=== PATIENT | female | born 1995 | race Caucasian/White ===

== ENCOUNTER 2018-06-22 21:57 | Emergency (ER) | payer OTHER ==
[2018-06-22 22:59] VITALS: TEMP 98.4
[2018-06-23] MEDS ORDERED: Atrop/Hyos/Scop/PhenoB Elixir PO STA (01:04)
[2018-06-23] MEDS ORDERED: Alum-Mag Hydrox-Simethicone Susp (30 mL) PO STA (01:04)
[2018-06-23] MEDS ORDERED: Sodium Chloride 0.9% 1,000 ML IV STA (01:05)
[2018-06-23 01:42] LABS: BASO % 0.4 % (0.0-2.0); EOS % 0.4 % (0.0-4.0); HEMOGLOBIN 13.5 g/dL (12.0-16.0); LYMPH # 1.1 K/uL (1.0-4.3); LYMPH % 14.3 % (20.0-40.0); MEAN CELL VOLUME 94.7 fl (81.0-99.0); MEAN CORPUSCULAR HEMOGLOBIN 31.5 pg (27.0-31.0); MEAN CORPUSCULAR HGB CONC 33.3 g/dL (33.0-37.0); MEAN PLATELET VOLUME 8.3 fl (7.2-11.7); MONO # 0.4 K/uL (0.0-0.8); MONO % 4.5 % (0.0-10.0); NEUT # 6.4 K/uL (1.8-7.0); NEUT % 80.4 % (50.0-75.0); RBC 4.27 Mil/uL (3.80-5.20); RED CELL DISTRIBUTION WIDTH 14.3 % (11.5-14.5)
[2018-06-23 01:56] LABS: SQUAMOUS EPITHIAL 12 /hpf (0-5); URINE BILIRUBIN NEGATIVE (NEGATIVE); URINE BLOOD SMALL (NEGATIVE); URINE CLARITY TURBID (Clear); URINE COLOR YELLOW (YELLOW); URINE GLUCOSE (UA) NEG (Normal); URINE LEUKOCYTE ESTERASE LARGE Leu/uL (Negative); URINE PROTEIN 30 mg/dL (NEGATIVE); URINE UROBILINOGEN 0.2-1.0 mg/dL (0.2-1.0); WBC CLUMPS MANY /hpf
[2018-06-23] MEDS ORDERED: Alum-Mag Hydrox-Simethicone Susp (30 mL) ONE (02:02)
[2018-06-23 02:03] LABS: ALB/GLOB RATIO 1.3 (1.0-2.1); ALT/SGPT 26 U/L (9-52); AST/SGOT 28 U/L (14-36); BLOOD UREA NITROGEN 16 mg/dl (7-17); CALCIUM 10.6 mg/dL (8.4-10.2); GFR NON-AFRICAN AMERICAN > 60; LIPASE 80 U/L (23-300)
--- NOTE | 2018-06-23 02:34 | ED PDOC ---
HPI: Abdomen Time Seen by Provider: 06/23/18 00:26 Chief Complaint (Nursing): Abdominal Pain Chief Complaint (Provider): abdominal pain History Per: Patient History/Exam Limitations: no limitations Onset/Duration Of Symptoms: Hrs (x3) Current Symptoms Are (Timing): Still Present Location Of Pain/Discomfort: Epigastric Associated Symptoms: Nausea, Vomiting (x1) Additional Complaint(s): Viola Clark is a 23 year old female, with no significant past medical history, who presents to the emergency department complaining of abdominal pain onset for x3 hrs. Patient reports she took some herbal medication from [employer] that her mother sent her. After taking the herbal medication, she developed an acute epigastric pain that radiates to chest and is associated with nausea and x1 vomiting episode, non bloody and non bilious. She denies any other medical complaints. PMD: None provided. Past Medical History Reviewed: Historical Data, Nursing Documentation, Vital Signs Vital Signs: Last Vital Signs Temp 98.4 F 06/22/18 22:54 Pulse 85 06/22/18 22:54 Resp 17 06/22/18 22:54 BP 109/72 06/22/18 22:54 Pulse Ox 98 06/22/18 22:54 - Medical History PMH: No Chronic Diseases - Surgical History Surgical History: Appendectomy - Family History Family History: States: Unknown Family Hx - Social History Current smoker - smoking cessation education provided: No Alcohol: None Drugs: Denies - Home Medications Home Medications: Ambulatory Orders Medication Instructions Recorded Esomeprazole Magnesium [Nexium] 20 mg PO QAM #14 ecc 06/23/18 Nitrofurantoin Macrocrystals 100 mg PO BID #14 cap 06/23/18 [Macrobid] - Allergies Allergies/Adverse Reactions: Allergies Allergy/AdvReac Type Severity Reaction Status Date / Time Penicillins Allergy RASH Verified 06/22/18 22:59 Review of Systems ROS Statement: Except As Marked, All Systems Reviewed And Found Negative Gastrointestinal: Positive for: Nausea, Vomiting, Abdominal Pain Physical Exam - Reviewed Nursing Documentation Reviewed: Yes Vital Signs Reviewed: Yes - Physical Exam Appears: Positive for: Uncomfortable Head Exam: Positive for: ATRAUMATIC, NORMAL INSPECTION, NORMOCEPHALIC Skin: Positive for: Normal Color, Warm, Dry Eye Exam: Positive for: Normal appearance, EOMI, PERRL Neck: Positive for: Painless ROM Cardiovascular/Chest: Positive for: Regular Rate, Rhythm. Negative for: Murmur Respiratory: Positive for: Normal Breath Sounds. Negative for: Respiratory Distress Gastrointestinal/Abdominal: Positive for: Tenderness (epigastric) Back: Positive for: Normal Inspection. Negative for: L CVA Tenderness, R CVA Tenderness, Vertebral Tenderness Extremity: Positive for: Normal ROM (upper and lower extremities). Negative for: Deformity, Swelling Neurologic/Psych: Positive for: Alert, Oriented, Gait (steady) - Laboratory Results Result Diagrams: 06/23/18 01:34 06/23/18 01:34 - ECG O2 Sat by Pulse Oximetry: 98 (RA) Pulse Ox Interpretation: Normal Medical Decision Making Medical Decision Making: Time: 00:26 Initial Impression: 23 y/o [place] female with acute epigastric pain. Initial Plan: --CMP --Lipase --Urine --Urine dipstick --CBC w/ differential -- 10 ml PO --Lidocaine 2% Viscous 10 ml PO --Maalox Plus 30 ml PO --Sodium Chloride 0.9% 1,000 ml IV 1,000 mls/hr --Pepcid 20 mg IV --Zofran 4 mg IV --Urinalysis --Reevaluation 02:45 -Labs showed no clinical significant abnormalities except for urine which was indicative of UTI. Patient reports improvement of symptoms and is medically stable for discharge home. Diagnosis of gastritis and UTI. Scribe Attestation: Documented by Hollis Wells, acting as a scribe for Bishop Slaughter MD. Provider Scribe Attestation: All medical record entries made by the Scribe were at my direction and personally dictated by me. I have reviewed the chart and agree that the record accurately reflects my personal performance of the history, physical exam, medical decision making, and the department course for this patient. I have also personally directed, reviewed, and agree with the discharge instructions and disposition. Disposition - Clinical Impression Clinical Impression: UTI (urinary tract infection), Gastritis - Disposition Disposition: Routine/Home Disposition Time: 02:45 Condition: STABLE Prescriptions: Esomeprazole Magnesium [Nexium] 20 mg PO QAM #14 ecc Nitrofurantoin Macrocrystals [Macrobid] 100 mg PO BID #14 cap Instructions: Urinary Tract Infections in Adults Forms: [facility] (Citizen [place])
[2018-06-23 03:39] VITALS: BP 125/77; PULSE 62; RESP 18; O2SAT 100
== END 2018-06-23 03:43 | disposition home or self-care (01) ==
LOC: H.ER 21:57
DX: N39.0 Urinary tract infection, site not specified (principal); K29.70 Gastritis, unspecified, without bleeding; Z88.0 Allergy status to penicillin
CPT/HCPCS: 80053; 81003; 81025; 83690; 85025; 99284; J2405; J7030